=== PATIENT | female | born 1955 | race Asian ===

== ENCOUNTER 2016-10-13 09:02 | Outpatient (CLI) | payer BC ==
[2016-10-13] MEDS ORDERED: BARIUM SULFATE 148 GM POWDER PO ONE (10:29)
[2016-10-13] MEDS ORDERED: BARIUM SULFATE 454 GM TUBE PO ONE (10:29)
--- NOTE | 2016-10-13 13:49 | XRAY Report ---
MODIFIED BARIUM SWALLOW: 10/13/2016 CLINICAL INDICATION: Dysphagia. FINDINGS: Various consistencies of barium were prepared and administered in conjunction with Speech Pathology. There was no evidence of penetration or aspiration with any administered consistency. Pl ease also refer to full report from Speech Pathology for further findings. IMPRESSION: NO EVIDENCE OF PENETRATION OR ASPIRATION. FLUOROSCOPY TIME: 1 minute 3 seconds; 1 spot image obtained (cinefluoroscopy recorded). JOB #: [id number] EXT JOB #:[id number]
== END 2016-10-13 09:03 | disposition home or self-care (01) ==
LOC: DI 09:02
PROVIDERS: ATTEND Family Medicine
DX: R13.10 Dysphagia, unspecified (principal)
CPT/HCPCS: 74230